=== PATIENT | male | born 1985 | race African-American/Black ===

== ENCOUNTER 2018-05-12 16:35 | Emergency (ER) | payer SELFPAY ==
[~2018-05-12] VITALS: Ht 170.2 cm; Wt 72.6 kg
[2018-05-12 16:47] VITALS: BP 114/74
== END 2018-05-12 21:38 | disposition home or self-care (01) ==
LOC: ER 16:41
DX: S83.8X2A Sprain of other specified parts of left knee, initial encounter (principal); W01.0XXA Fall on same level from slipping, tripping and stumbling without subsequent striking against object, initial encounter; Y93.89 Activity, other specified; Y99.8 Other external cause status; Y92.89 Other specified places as the place of occurrence of the external cause
CPT/HCPCS: 73560